=== PATIENT | female | born 1990 | race Caucasian/White ===

== ENCOUNTER 2024-04-21 20:35 | Emergency (ER) | payer OTHER, SELFPAY ==
--- NOTE | ~2024-04-21 | CT_ITS ---
CT brain wo con Ordering provider: Saida Becker PA-C History: 33 years Female with . headache . Comparison: None. Technique: CT of the head without contrast. Radiation reduction technique utilized. FINDINGS: BRAIN PARENCHYMA AND CSF SPACES: No midline shift, mass effect or hemorrhage. The brain parenchyma a nd CSF spaces are otherwise normal. Empty sella turcica. VISUALIZED PARANASAL SINUSES: Well aerated. MASTOIDS: Well aerated. BONES: The bones appear intact. SOFT TISSUES: Visualized nasopharynx is normal. Superficial soft tissues are normal. IMPRESSION: No acute intracranial findings. Reviewed, dictated and finalized at location A.
[2024-04-21 20:54] VITALS: BP 137/75; PULSE 71; RESP 18; TEMP 36.1; O2SAT 96
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
[2024-04-21] MEDS: ACETAMINOPHEN 500 MG TABLET 1000 MG PO (22:33)
[2024-04-21] MEDS: SODIUM CHLORIDE 0.9% IV 1,000 ML 999 ML IV CONT (22:33)
[2024-04-21] MEDS: PROCHLORPERAZINE EDISYLATE 10 MG/2 ML VIAL IV PUSH (22:34)
[2024-04-21] MEDS: diphenhydrAMINE HCl INJ 50 MG/ML VIAL 25 MG IV PUSH (22:34)
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
== END 2024-04-21 23:07 | disposition home or self-care (01) ==
PROVIDERS: Emergency Provider Physician Assistant
DX: G43.911 Migraine, unspecified, intractable, with status migrainosus (principal)
CPT/HCPCS: 70450; 96374; 96375; 99284; A9270; J0780; J1200; J7030

== ENCOUNTER 2024-08-02 10:01 | Emergency (ER) | payer OTHER, SELFPAY ==
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
[2024-08-02 10:08] VITALS: BP 115/71; PULSE 78; RESP 20; TEMP 36.6; O2SAT 98
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
[2024-08-02 10:20] VITALS: BP 115/71; PULSE 78; RESP 20; TEMP 36.6; O2SAT 98
== END 2024-08-02 10:55 | disposition home or self-care (01) ==
PROVIDERS: Emergency Provider Nurse Practitioner Family; PCP Internal Medicine
DX: S16.1XXA Strain of muscle, fascia and tendon at neck level, initial encounter (principal); V47.5XXA Car driver injured in collision with fixed or stationary object in traffic accident, initial encounter; F32.A Depression, unspecified
CPT/HCPCS: 72040; 99213; G0463

== ENCOUNTER 2024-10-18 13:13 | Emergency (ER) | payer OTHER, SELFPAY ==
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
[2024-10-18 13:28] VITALS: BP 120/75; PULSE 80; RESP 16; TEMP 36.6; O2SAT 100
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
== END 2024-10-18 14:45 | disposition home or self-care (01) ==
PROVIDERS: Emergency Provider Nurse Practitioner Family; PCP Internal Medicine
DX: S46.912A Strain of unspecified muscle, fascia and tendon at shoulder and upper arm level, left arm, initial encounter (principal); V49.9XXA Car occupant (driver) (passenger) injured in unspecified traffic accident, initial encounter; F32.A Depression, unspecified
CPT/HCPCS: 73030; 99213; G0463